=== PATIENT | female | born 1995 | race Caucasian/White ===

== ENCOUNTER 2018-10-28 14:16 | Inpatient (IN) | payer OTHER ==
[~2018-10-28] VITALS: Ht 154.9 cm; Wt 64.0 kg
[2018-10-31] MEDS ORDERED: PRENATAL TABLE1 EAC1 PO (08:16)
[2018-10-31] MEDS ORDERED: FOLIC ACID1 MG PO (08:17)
== END 2018-11-02 12:14 | DRG 807 ==
LOC: LDR 10-31 06:29 → OB/GYN 10-31 06:29 → LDR 10-31 13:53 → OB/GYN 11-02 12:14
PROVIDERS: ADMIT Specialist
PROC: 10E0XZZ Delivery of Products of Conception, External Approach (ICD-10-PCS; principal; 2018-10-31)
PROC: 4A1HXCZ Monitoring of Products of Conception, Cardiac Rate, External Approach (ICD-10-PCS; 2018-10-31)
PROC: 3E033VJ Introduction of Other Hormone into Peripheral Vein, Percutaneous Approach (ICD-10-PCS; 2018-10-31)
PROC: 0UQGXZZ Repair Vagina, External Approach (ICD-10-PCS; 2018-10-31)
PROC: 4A033R1 Measurement of Arterial Saturation, Peripheral, Percutaneous Approach (ICD-10-PCS; 2018-10-31)
DX: O71.4 Obstetric high vaginal laceration alone (principal); Z37.0 Single live birth; Z3A.39 39 weeks gestation of pregnancy